=== PATIENT | male | born 1965 | race Caucasian/White ===

== ENCOUNTER 2023-11-09 17:04 | Outpatient (RCR) | payer BC, SELFPAY | END 2023-11-09 23:59 | disposition home or self-care (01) | LOC: RPT 17:04 | PROVIDERS: ATTENDING PHYSICIAN Physical Medicine & Rehabilitation; FAMILY PHYSICIAN Internal Medicine | DX: M48.061 Spinal stenosis, lumbar region without neurogenic claudication (principal); M51.16 Intervertebral disc disorders with radiculopathy, lumbar region | CPT/HCPCS: 97110; 97112 ==

== ENCOUNTER 2023-12-07 17:18 | Outpatient (RCR) | payer BC, SELFPAY | END 2023-12-07 23:59 | disposition home or self-care (01) | LOC: RPT 17:18 | PROVIDERS: ATTENDING PHYSICIAN Physical Medicine & Rehabilitation; FAMILY PHYSICIAN Internal Medicine | DX: M54.16 Radiculopathy, lumbar region (principal); M51.36 Other intervertebral disc degeneration, lumbar region; M48.061 Spinal stenosis, lumbar region without neurogenic claudication; Z73.6 Limitation of activities due to disability | CPT/HCPCS: 97110; 97112 ==

== ENCOUNTER 2023-12-28 16:29 | Outpatient (RCR) | payer BC, SELFPAY | END 2023-12-29 07:07 | disposition home or self-care (01) | LOC: RPT 16:29 | PROVIDERS: ATTENDING PHYSICIAN Physical Medicine & Rehabilitation; FAMILY PHYSICIAN Internal Medicine | DX: M51.16 Intervertebral disc disorders with radiculopathy, lumbar region (principal); M48.061 Spinal stenosis, lumbar region without neurogenic claudication | CPT/HCPCS: 97110 ==

== ENCOUNTER → 2024-01-25 10:07 | Outpatient (REF) | payer BC, SELFPAY | LOC: RAD 10:07 | PROVIDERS: ATTENDING PHYSICIAN Internal Medicine | DX: G20.C Parkinsonism, unspecified (principal) | CPT/HCPCS: 74230; 92611 ==

== ENCOUNTER → 2025-02-14 12:56 | Outpatient (REF) | payer BC, SELFPAY | LOC: HWRAD 12:56 | PROVIDERS: ATTENDING PHYSICIAN Family Medicine Adult Medicine; FAMILY PHYSICIAN Internal Medicine | DX: Z87.891 Personal history of nicotine dependence (principal) | CPT/HCPCS: 71271 ==

== ENCOUNTER → 2025-05-19 10:59 | Outpatient (REF) | payer BC, SELFPAY | LOC: RCS 10:59 | PROVIDERS: ATTENDING PHYSICIAN Internal Medicine Cardiovascular Disease; FAMILY PHYSICIAN Internal Medicine | DX: R07.89 Other chest pain (principal) | CPT/HCPCS: 78452; 93017; A9500 ==

== ENCOUNTER → 2025-05-22 10:21 | Outpatient (REF) | payer BC, SELFPAY | LOC: DHSLP 10:21 | PROVIDERS: ATTENDING PHYSICIAN Internal Medicine; FAMILY PHYSICIAN Internal Medicine | DX: G47.30 Sleep apnea, unspecified (principal); R06.83 Snoring | CPT/HCPCS: 95800 ==

== ENCOUNTER → 2025-06-05 13:56 | Outpatient (REF) | payer BC, SELFPAY | LOC: HWRCS 13:56 | PROVIDERS: ATTENDING PHYSICIAN Internal Medicine Cardiovascular Disease; FAMILY PHYSICIAN Internal Medicine | DX: R07.89 Other chest pain (principal) | CPT/HCPCS: 93306 ==